=== PATIENT | male | born 1975 | race Caucasian/White ===

== ENCOUNTER 2018-04-02 21:27 | Emergency (ER) | payer SELFPAY ==
[2018-04-02] MEDS ORDERED: 50% Dextrose in Water 50 ML Syringe IVPUSH ONE (22:22)
[2018-04-02] MEDS ORDERED: Sodium Chloride 0.9% 1,000 ML IV SCH (22:30)
--- NOTE | 2018-04-04 12:01 | ER ---
DATE SEEN: 04/02/2018 CHIEF COMPLAINT: Confusion, agitation. HISTORY OF PRESENT ILLNESS: The patient was brought in by a friend-girl that he knows. They are not in any specific relationship and know each other and "help each other." Per the friend, they noted he had asked this friend to help him fix his truck. It has broken down. He needed somebody who had finer hands that could put a screw or bolt into his truck to help get it fixed. She could not do this and noticed that he was becoming more agitated, sweaty, flushed, confused, and finally decided she would bring him to the emergency room. He denies drinking. The patient cannot answer questions. When I came in the room, the nurses had one forearm in restraints in a normal position and one leg below restraints. The patient could not answer questions. He was thrashing about, restless, agitated, not violent, not shouting, uncommunicative. Initially, he did not respond to questions with stare and has to move his eyes [id number] and fixed pupils. PRIMARY SURVEY: Airway. The patient is breathing, exchanging air, patent airway. Breath sounds noted, has bilateral air exchange. Blood pressure 135/56, heart rate 100, respirations between 15 and 30 and intermittently variable. The patient not responsive, confused, agitated as noted. There was no purposeful conversation. Pupils are fixed. Exposures, no evidence for abrasions, trauma, ecchymoses, purpura, or dislocations. PHYSICAL EXAMINATION: GENERAL: Again, the patient's status seemed to slightly deteriorate. Intermittently, he would have episodes where he would stop breathing for 2 or 3 seconds, sometimes 4 or 5, none with stimulation, very easily aroused, looks around, and then go back to breathing. Then he would have intermittent episodes of brief apnea. Secondary exam: HEENT: He has fixed pupils. Does not follow my fingers in eye motion. TMs negative. NECK: Supple. No thyromegaly or masses in the neck. No cervical adenopathy. Pharynx without abnormality. No bleeding from his tongue or no suggestion of tongue biting. No chips in his teeth. LUNGS: Clear without rales, rhonchi, or wheezes. HEART: S1 and S2. No murmur. Borderline secondary sinus tachycardia to high 90s to the low 100s. ABDOMEN: Soft. No guarding. No abdominal discomfort. EXTREMITIES: Without abnormality, except for his right upper extremity has a restraint on his wrist and left upper extremity has restraint on his wrist also. Deep tendon reflexes normoactive. NEUROLOGIC: Eyes, would not follow commands, but EOMs were normal. Hearing appears to be intact and occasionally he would stop and become alert and would finally move his lips after I talk to him. His gag is in place. Cranials nerve II-XII were normal except he had fixed pupils. WORKING DIAGNOSIS: Drug overdose. Attempts to place a [place] to urine was unsuccessful, he had no urine in his bladder. Lips are mildly dry. Peripheral IV was established. In the meantime, I spoke to his mother. Mother states that he lives with her, but had not come home for 2 days. Last time, she saw him was 03/31/2018. She wondered that if he might be having stomach pain. He talked about that before. He has had episodes of depression. He was seen 2 weeks ago at [facility] for his depression. She denies that he smokes, but knows that he drinks alcohol sometimes and he had been going together with a lady friend, but the mother was not sure about the relationship. PAST MEDICAL HISTORY: Three brothers and 1 sister alive and well without any psychiatric history. Father was killed in a motor vehicle accident when the patient was aged 13. His depression has been significant for the past 3 years. He has never been suicidal. LABORATORY FINDINGS: White count 8000, PMNs 68, lymphs 20, monos 10, hemoglobin 15.2. Complete metabolic panel is normal with the exception of glucose point-of- care was 140, bilirubin 2.1, AST 57, ALT 50, alkaline phosphatase 114. Electrolytes are normal. Remainder of the complete metabolic panel is normal. Attempts to get a urine drug screen was not successful as even with catheterization, no urine was noted in the bladder. Because of this, the patient was flushed with 1000 mL of normal saline. His status was followed. Because of his agitation and confusion, it was felt that the patient could not be monitored or stabilized here in ICU. Consequently, his status was discussed with Dr. Conner in the ED at [facility]. Plans were to transfer, if he did not improve. After discussion with Dr. Conner, she noted that all they would do at [facility] ER is to stabilize him and observe in the ER and if better probably dismiss him this evening without further psychiatric care. As we are waiting for his laboratory work to come back, his status seemed to slowly improve to the point where he became more communicative and started talking. This was a breakthrough as he had been not communicating at all. He was able to tell he used methamphetamine and he would like to get treatment if that is possible. Family arrived and were supportive and his brother and a friend of his mother's. The patient's status improved significantly, so neurological status has returned to normal. He was up talking, more alert. Still had fixed pupils. No further attempts were made to get a urine specimen, as he could not pass urine. He was able to drink water, sufficient enough, and felt he could rehydrate himself. He drank close to 8 cups of water in the ER in addition to 1000 mL normal saline. He was then dismissed to follow up with his doctor next week and have his doctor make arrangements for the patient to get therapy-treatment for his chemical addiction. ASSESSMENT: 1. Methamphetamine abuse on the basis of the history. 2. Confusion and agitation secondary to methamphetamine that gradually cleared. 3. 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 He denies using alcohol most likely secondary to drug abuse. 4. No evidence for [employer] event. CAT scan of the head was not performed as he improved to the point where he was no longer confused and agitation resolved. Diaphoresis resolved. Diaphoresis was secondary to his methamphetamine use. DIAGNOSIS: Moderate dehydration. The patient dismissed to follow up with his doctor in a week. He has an appointment apparently in 5 days plus. /[id number] ANANDA/OLGA
--- NOTE | 2018-04-05 03:57 | ER ---
DATE SEEN: 04/02/2018 EKG REPORT Sinus tachycardia, heart rate 102, QT 465. /[id number] ANANDA/OLGA
== END 2018-04-03 00:15 | disposition home or self-care (01) ==
LOC: FB.ED 21:27
DX: F15.10 Other stimulant abuse, uncomplicated (principal); E86.0 Dehydration; K71.6 Toxic liver disease with hepatitis, not elsewhere classified; F32.9 Major depressive disorder, single episode, unspecified
CPT/HCPCS: 36415; 80053; 82962; 85025; 93005; 96361; 96374; 99285; J7040